=== PATIENT | male | born 1990 | race Caucasian/White ===

== ENCOUNTER 2022-02-07 10:29 | Emergency (ER) | payer OTHER ==
[2022-02-07] MEDS ORDERED: morphine INJ 10 MG/ML 1ML (SYR OR VIAL) IVP STA (10:42)
[2022-02-07] MEDS ORDERED: KETOROLAC 30 MG/ML VIAL IVP ONE (10:45)
[2022-02-07] MEDS ORDERED: ONDANSETRON 4 MG/2 ML (SDV) Z0FRAN IVP ONE (10:45)
--- NOTE | 2022-02-07 11:03 | ED Back Pain ---
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 HE IS HAVING SPASMS ABOUT EVERY FEW SECONDS AND UNABLE TO GET COMFORTABLE AND GRIMACING. RATES PAIN 8/10. Source of Information: Patient Exam Limitations: No Limitations History of Present Illness Date Seen by Provider: Feb 07, 2022 Time Seen by Provider: 10:30 Initial Comments Patient is a 32-year-old male presents with acute low back pain radiating to right lateral thigh starting while at work just prior to to arrival. 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 He was not lifting or hammering the time his pain began. He reports sudden onset sharp, radiating pain rated moderate to severe over the right paravertebral area radiating downward. Pain is worse with palpation movement range of motion. Patient did take Tylenol prior to ED arrival with limited relief. No other acute symptoms or complaints Timing/Duration: 1-3 Hours Severity: Mild Pain/Injury Location: Other Radiation: Other Method of Injury: Other Modifying Factors: Improves With Other Associated Symptoms: other Allergies and Home Medications Allergies Coded Allergies: No Known Drug Allergies (Unverified , 02/07/22) Patient Home Medication List Home Medication List Reviewed: Yes Review of Systems Constitutional: see HPI EENTM: see HPI Cardiovascular: see HPI Gastrointestinal: see HPI Genitourinary: see HPI Musculoskeletal: see HPI Skin: see HPI Psychiatric/Neurological: See HPI All Other Systems Reviewed Negative Unless Noted: No Past Xviieqo-Gszlzy-Qfccia Hx Patient Social History Tobacco Use?: Yes Use of E-Cig and/or Vaping dev: No Substance use?: No Alcohol Use?: No Pt feels they are or have been: No Immunizations Up To Date First/Initial COVID19 Vaccinat: 2020 Physical Exam Vital Signs Vital Signs - First Documented 02/07/22 10:42 Temp 36.5 Pulse 104 Resp 16 B/P (MAP) 163/116 (132) Pulse Ox 96 O2 Delivery Room Air Capillary Refill : Less Than 3 Seconds Height, Weight, BMI Height: '" Weight: lbs. oz. kg; BMI Method: General Appearance: WD/WN, Moderate Distress HEENT: PERRL/EOMI Respiratory: Lungs Clear Back: Normal Inspection, No CVA Tenderness, No Vertebral Tenderness; No CVA Tenderness (L), No CVA Tenderness (R); Decreased Range of Motion, Muscle Spasm (Right paravertebral pain/tenderness); No Vertebral Tenderness Extremity: Non Tender, No Calf Tenderness Neurologic/Psychiatric: Alert, Oriented x3, No Motor/Sensory Deficits Progress/Results/Core Measures Results/Orders My Orders Orders - JEIMY CARDENAS DO Lumbar Spine 2 Or 3 View (02/07/22 10:42) Morphine Injection (Morphine Injection (02/07/22 10:42) Ondansetron Injection (Zofran Injectio (02/07/22 10:45) Ketorolac Injection (Toradol Injection) (02/07/22 10:45) Medications Given in ED Current Medications Medications Dose Ordered Sig/Oscar Route Start Time Stop Time Status Last Admin Dose Admin Ketorolac Tromethamine 30 mg ONCE ONCE IVP 02/07/22 10:45 02/07/22 10:46 DC 02/07/22 10:55 30 MG Ondansetron HCl 4 mg ONCE ONCE IVP 02/07/22 10:45 02/07/22 10:46 DC 02/07/22 10:55 4 MG Vital Signs/I&O 02/07/22 10:42 Temp 36.5 Pulse 104 Resp 16 B/P (MAP) 163/116 (132) Pulse Ox 96 O2 Delivery Room Air Blood Pressure Mean: 132 Departure Communication (Admissions) Lumbar series: No acute findings per radiology report Patient with musculoskeletal back pain without neurologic compromise. X-rays reassuring. Pain improved with treatment. Recommendations are for supportive care watchful waiting and work comp follow-up. Return precautions reviewed Impression Primary Impression: Lumbar radiculopathy Disposition: 01 HOME, SELF-CARE Condition: Stable Departure-Patient Inst. Decision time for Depature: 11:20 Referrals: NO,LOCAL PHYSICIAN (PCP/Family) Primary Care Physician Patient Instructions: Radiculopathy, Low Back Pain (DC) Add. Discharge Instructions: You were evaluated in the emergency department for acute low back pain. X-ray was performed and are nondiagnostic. Please avoid strenuous physical activity and heavy lifting. Take newly Medrol Dosepak, and Tylenol for daytime pain. You may take oxycodone and Flexeril as needed for additional relief. However, you may not drive or perform any other potentially dangerous activity while taking oxycodone and Flexeril. Follow-up with your work comp/PCP provider in the next 2 to 3 days for reevaluation. Return to the ED if new or worsening sym ptoms peer All discharge instructions reviewed with patient and/or family. Voiced understanding. Scripts Oxycodone HCl (Oxycodone HCl) 10 Mg Tablet 10 MG PO Q6H for 7 Days, #12 TAB Prov: JEIMY CARDENAS DO 02/07/22 Cyclobenzaprine HCl (Cyclobenzaprine HCl) 10 Mg Tablet 10 MG PO Q8H PRN for SPASMS, #15 TAB 0 Refills Prov: JEIMY CARDENAS DO 02/07/22 Methylprednisolone (Methylprednisolone Dose Pack) 4 Mg Tablet 4 MG PO UD for 6 Days, #21 TAB FOLLOW DOSE PACK INSTRUCTIONS Prov: JEIMY CARDENAS DO 02/07/22 JEIMY CARDENAS DO Feb 07, 2022 11:03
--- NOTE | 2022-02-07 11:11 | Diagnostic Imaging Report ---
EXAM: LUMBAR SPINE 2 OR 3 VIEW INDICATION: Back pain. COMPARISON: None. FINDINGS: Normal alignment. Vertebral body heights preserved. No fractures. No substantial spondylotic change. Visualized pelvis is intact. IMPRESSION: Negative lumbar spine radiographs. Dictated by: Dictated on workstation # [id number]
[2022-02-07] MEDS ORDERED: METH4TAB11 PO (11:26)
[2022-02-07] MEDS ORDERED: CYCL10TA25 PO (11:26)
[2022-02-07] MEDS ORDERED: OXYC10TA7 PO (11:26)
[2022-02-07 11:30] VITALS: BP 163/116
== END 2022-02-07 11:42 | disposition home or self-care (01) ==
LOC: ER FS 10:33
DX: M54.16 Radiculopathy, lumbar region (principal); Z28.311 Partially vaccinated for COVID-19
CPT/HCPCS: 72100